=== PATIENT | male | born 1960 | race Caucasian/White ===

== ENCOUNTER 2021-05-25 06:49 | Outpatient (CLI) | payer OTHER, SELFPAY ==
[2021-05-25 10:28] LABS: Alanine Aminotransferase 22 U/L (4-50); Albumin Level 3.9 g/dL (3.5-5.1); Alkaline Phosphatase 48 U/L (38-126); Anion Gap 9 mmol/L (8-16); Aspartate Amino Transferase 30 U/L (17-59); Bilirubin,Total 0.7 mg/dL (0.2-1.3); Blood Urea Nitrogen 21 mg/dL (9-20); Calcium 9.6 mg/dL (8.4-10.2); Carbon Dioxide 25 mmol/L (22-30); Chloride 103 mmol/L (98-107); Cholesterol 147 mg/dL (0-200); Estimated Glomerular Filt Rate > 60; Glucose 85 mg/dL (65-110); HDL Direct 46 mg/dL; Potassium 4.5 mmol/L (3.4-5.0); Sodium 137 mmol/L (137-145); Triglycerides 74 mg/dL (<150)
[2021-05-25 10:46] LABS: LDL Cholesterol Direct 69 mg/dL
[2021-05-27 20:14] LABS: Prostate Specific Antigen 3.9 ng/mL (< OR = 4.0)
== END 2021-05-25 06:50 | disposition home or self-care (01) ==
PROVIDERS: PCP Internal Medicine; Visit Provider Internal Medicine
DX: E78.5 Hyperlipidemia, unspecified (principal); E78.2 Mixed hyperlipidemia; Z79.899 Other long term (current) drug therapy; Z12.5 Encounter for screening for malignant neoplasm of prostate
CPT/HCPCS: 36415; 80053; 80061; 84153; G0103

== ENCOUNTER 2021-11-01 12:40 | Outpatient (CLI) | payer OTHER, SELFPAY ==
[2021-11-01 14:26] LABS: Alanine Aminotransferase 31 U/L (4-50); Albumin Level 4.1 g/dL (3.5-5.1); Alkaline Phosphatase 51 U/L (38-126); Anion Gap 8 mmol/L (8-16); Aspartate Amino Transferase 36 U/L (17-59); Bilirubin,Total 0.6 mg/dL (0.2-1.3); Blood Urea Nitrogen 24 mg/dL (9-20); Calcium 9.3 mg/dL (8.4-10.2); Carbon Dioxide 30 mmol/L (22-30); Chloride 101 mmol/L (98-107); Cholesterol 114 mg/dL (0-200); Estimated Glomerular Filt Rate > 60; Glucose 73 mg/dL (65-110); HDL Direct 50 mg/dL; Sodium 139 mmol/L (137-145); Triglycerides 162 mg/dL (<150)
[2021-11-01 14:37] LABS: LDL Cholesterol Direct 44 mg/dL
== END 2021-11-01 12:41 | disposition home or self-care (01) ==
LOC: ANHLAB 12:43
PROVIDERS: PCP Internal Medicine; Visit Provider Internal Medicine
DX: I63.9 Cerebral infarction, unspecified (principal); Z79.899 Other long term (current) drug therapy; E78.5 Hyperlipidemia, unspecified
CPT/HCPCS: 36415; 80053; 80061

== ENCOUNTER 2022-12-17 09:25 | Outpatient (CLI) | payer OTHER, SELFPAY ==
[2022-12-17 10:42] LABS: Hematocrit 41.6 % (42.0-52.0); Hemoglobin 13.6 g/dL (14.0-18.0); Mean Corpuscular HGB Conc 32.7 g/dl (32-36); Mean Corpuscular Hemoglobin 29.2 pg (26-34); Mean Corpuscular Volume 89.5 fl (80-100); Mean Platelet Volume 9.9 fl (7.4-10.4); Platelet Count Result 312 k/mm3 (150-375); Red Blood Count 4.65 M/mm3 (4.6-6.20); Red Cell Distribution Width 13.9 % (11.5-14.5); White Blood Count 5.2 K/mm3 (4.5-10.0)
[2022-12-17 10:55] LABS: Alanine Aminotransferase 27 U/L (6-50); Albumin Level 4.3 g/dL (3.5-5.1); Alkaline Phosphatase 53 U/L (38-126); Anion Gap 6 mmol/L (8-16); Aspartate Amino Transferase 36 U/L (17-59); Bilirubin,Total 0.8 mg/dL (0.2-1.3); Blood Urea Nitrogen 18 mg/dL (9-20); Carbon Dioxide 28 mmol/L (22-30); Chloride 102 mmol/L (98-107); Cholesterol 96 mg/dL (0-200); Estimated Glomerular Filt Rate > 60; Glucose 86 mg/dL (65-110); HDL Direct 45 mg/dL; Phosphorus 3.5 mg/dL (2.5-4.5); Potassium 4.6 mmol/L (3.4-5.0); Sodium 136 mmol/L (137-145); Triglycerides 65 mg/dL (<150)
[2022-12-17 11:05] LABS: Hemoglobin A1C 5.5 % (<5.7)
[2022-12-17 11:22] LABS: Prostate Specific Antigen 4.5 ng/mL (< OR = 4.0)
[2022-12-17 15:53] LABS: LDL Cholesterol Direct < 30 mg/dL
== END 2022-12-17 09:26 | disposition home or self-care (01) ==
PROVIDERS: PCP Internal Medicine; Visit Provider Internal Medicine
DX: Z00.00 Encounter for general adult medical examination without abnormal findings (principal); N18.2 Chronic kidney disease, stage 2 (mild); R97.20 Elevated prostate specific antigen [PSA]
CPT/HCPCS: 36415; 80053; 80061; 83036; 84100; 84153; 85027; G0103

== ENCOUNTER 2023-06-13 07:48 | Outpatient (CLI) | payer OTHER, SELFPAY ==
[2023-06-13 08:40] LABS: Alanine Aminotransferase 28 U/L (6-50); Albumin Level 3.9 g/dL (3.5-5.1); Alkaline Phosphatase 46 U/L (38-126); Anion Gap 4 mmol/L (8-16); Aspartate Amino Transferase 37 U/L (17-59); Bilirubin,Total 0.8 mg/dL (0.2-1.3); Blood Urea Nitrogen 20 mg/dL (9-20); Calcium 8.9 mg/dL (8.4-10.2); Carbon Dioxide 26 mmol/L (22-30); Chloride 103 mmol/L (98-107); Cholesterol 111 mg/dL (0-200); Estimated Glomerular Filt Rate > 60; Glucose 80 mg/dL (65-110); HDL Direct 56 mg/dL; Potassium 4.1 mmol/L (3.4-5.0); Sodium 133 mmol/L (137-145); Triglycerides 58 mg/dL (<150)
[2023-06-13 08:52] LABS: LDL Cholesterol Direct 42 mg/dL
== END 2023-06-13 07:49 | disposition home or self-care (01) ==
PROVIDERS: PCP Nurse Practitioner; Visit Provider Nurse Practitioner
DX: E78.5 Hyperlipidemia, unspecified (principal)
CPT/HCPCS: 36415; 80053; 80061

== ENCOUNTER 2023-06-26 07:24 | Outpatient (CLI) | payer OTHER, SELFPAY ==
[2023-06-26 08:55] LABS: Prostate Specific Antigen 4.7 ng/mL (< OR = 4.0)
== END 2023-06-26 07:25 | disposition home or self-care (01) ==
PROVIDERS: PCP Nurse Practitioner; Visit Provider Nurse Practitioner
DX: R97.20 Elevated prostate specific antigen [PSA] (principal)
CPT/HCPCS: 36415; 84153

== ENCOUNTER 2023-12-30 07:16 | Outpatient (CLI) | payer OTHER, SELFPAY ==
[2023-12-30 08:10] LABS: Alanine Aminotransferase 29 U/L (6-50); Albumin Level 3.9 g/dL (3.5-5.1); Alkaline Phosphatase 53 U/L (38-126); Anion Gap 5 mmol/L (8-16); Aspartate Amino Transferase 38 U/L (17-59); Bilirubin,Total 0.6 mg/dL (0.2-1.3); Blood Urea Nitrogen 23 mg/dL (9-20); Calcium 9.1 mg/dL (8.4-10.2); Carbon Dioxide 26 mmol/L (22-30); Chloride 105 mmol/L (98-107); Cholesterol 108 mg/dL (0-200); Estimated Glomerular Filt Rate > 60; Glucose 87 mg/dL (65-110); HDL Direct 47 mg/dL; Potassium 4.3 mmol/L (3.4-5.0); Sodium 136 mmol/L (137-145); Triglycerides 60 mg/dL (<150)
[2023-12-30 08:22] LABS: LDL Cholesterol Direct 52 mg/dL
[2023-12-30 08:41] LABS: Prostate Specific Antigen 6.3 ng/mL (< OR = 4.0)
== END 2023-12-30 07:17 | disposition home or self-care (01) ==
LOC: ANHLAB 07:17
PROVIDERS: PCP Nurse Practitioner; Visit Provider Nurse Practitioner
DX: Z12.5 Encounter for screening for malignant neoplasm of prostate (principal); E78.5 Hyperlipidemia, unspecified
CPT/HCPCS: 36415; 80053; 80061; 84153; G0103

== ENCOUNTER 2025-08-02 06:47 | Outpatient (CLI) | payer OTHER, SELFPAY ==
--- OUTSIDE RECORDS SUMMARY | 2025-08-02 06:50 | XMS_ITS | Clinical Summary ---
Author Organization [facility] Address [address] [place] [address] Care Team Providers Care Machine Cage Maker Name Role Phone Jaime Marin DO Primary Care Provider [phone] Patrick Gill MD Unavailable [phone] Tolu Phillips APRN Unavailable [phone] Gonzales Manzano MD Unavailable [phone] Allergies No known active allergies Medications loratadine 5 MG/5ML syrup Take 10 mg by mouth daily. Active buPROPion SR 150 MG 12 hr tablet Take 150 mg by mouth daily. Not quite sure what exact dosage is Active famotidine 20 MG tablet Take 1 tablet (20 mg total) by mouth 2 (two) times daily. 60 tablet 1 Active buPROPion XL 150 MG 24 hr tablet Take 150 mg by mouth every morning. 1 Active clotrimazole-be tamethasone cream Apply topically 2 (two) times daily. APPLY TO AFFECTED AREA 1 Active HYDROcodone-mary taminophen 10-325 MG tablet Take 1 tablet by mouth every 6 (six) hours as needed. 1 Active sildenafil 100 MG tablet TAKE 1/2 TABLET BY MOUTH 30 MIN 4 HOURS BEFORE SEXUAL ACTIVITY. 1 Active valACYclovir 1 g tablet Take 1,000 mg by mouth daily. 1 Active atorvastatin 40 MG tablet 1 Active Active Problems Problem Noted Date Diagnosed Date PFO (patent foramen ovale) ([facility]) 08/28/2021 Left arm weakness 07/12/2021 Acute ischemic stroke ([facility]) 07/12/20 21 Immunizations Immunization Administration Dates Next Due Fluzone 6 Months+ Quad (0.5 mL Prefilled Syringe ) 07/12/2021 Social History Tobacco Use Types Packs/Day Years Used Date Smoking Tobacco: Former Smokeless Tobacco: Never Comments:ended 6-7 years ago Alcohol Use Standard Drinks/Week Comments Never 0 (1 standard drink = 0.6 oz pur e alcohol) PHQ-2 Answer Date Recorded PHQ-2 Score - If the patient scores above 3, please move on to questions 3-9 0 08/27/2021 Sex and Gender Information Value Date Recorded Sex Assigned at Not on file Legal Sex Male 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 Gender Identity Not on file Sexual Orientation Not on file Last Filed Vital Signs Vital Sign Reading Time Taken Comments Blood Pressure 119/84 09/02/2021 10:38 AM SCAFFOLD WORKER Pulse 67 09/02/2021 10:38 AM SCAFFOLD WORKER Temperature 36.6 C (97.8 F) 07/13/2021 8:02 AM CDT Respiratory Rate 17 09/02/2021 10:38 AM SCAFFOLD WORKER Oxygen Saturation 98% 09/02/2021 10:38 AM SCAFFOLD WORKER Inhaled Oxygen Concentration - - Weight 83.5 kg (184 lb) 09/02/2021 10:38 AM SCAFFOLD WORKER Height 170.2 cm (5' 7) 09/02/2021 10:38 AM SCAFFOLD WORKER Body Mass Index 28.82 09/02/2021 10:38 AM SCAFFOLD WORKER Plan of Treatment Health Maintenance Due Date Last Done Comments Colorectal Cancer Screening Colonoscopy (10 Years) 1960 Hepatitis C 1978 DTaP, Tdap and Td Vaccines ( 1 - Tdap) 1979 Pneumococcal Vaccine: 50+ Years (1 of 1 - PCV) 2010 Zoster Vaccines (1 of 2) 2010 COVID-19 Vaccine (3 - 2024-2 6 season) 2025 01/13/2021, 12/25/2020 Influenza Adult (#1) 2025 07/12/2021 RSV Immunization or 60+ Years (1 - 1-dose 75+ series) 2035 Meningococcal B Vaccine Aged Out No l onger eligible based on patient's age to complete this topic Meningococcal Vaccine Aged Out No sabrina yanira eligible based on patient's age to complete this topic RSV Immunizations Under 20 Months Aged Out No longer eligible b ased on patient's age to complete this topic Insurance AETNA [facility] Advance Directives * Full Code (Latest Code Status on File) Date Activated Date Inactivated Comments 07/12/2021 12:40 AM 07/13/2021 5:21 PM Care Teams Machine Cage Maker Relationship Specialty Start Date End Date Jaime Marin DO [address] [place] [id number] PCP - General INTERNAL MEDICINE 07/15/21 Patrick Gill MD [address] [address] Consulting Physician INTERVENTIONAL CARDIOLOGY 08/27/21 Tolu Phillips APRN [address] [place] [address] Nurse Practitioner NURSE PRACTITIONER 08/27/21 Gonzales Manzano MD [address] [address] Consulting Physician Vascular Neurology 08/27/21
--- OUTSIDE RECORDS SUMMARY | 2025-08-02 06:50 | XMS_ITS | Encounter Summary ---
Author Organization [facility] Address [address] [place] [address] Care Team Providers Care Sound Cutter Name Role Phone Nuris Jimenez NP Primary Care Provider + [phone] Jaime Marin DO Primary Care Provider + [phone] Patrick Gill MD Unavailable + [phone] Tolu Phillips APRN Unavailable [phone] Gonzales Manzano MD Unavailable [phone] Encounter Details Date Type Department Care Team (Late st Contact Info) Description 01/09/2018 Abstract [facility] CONVERSION [address] [place] [address] , Generic Conversion, Social History Tobacco Use Types Packs/Day Years Used Date Smoking Tobacco: Never Assessed Sex and Gender Information Value Date Recorded Sex Assigned at Not on file 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 Gender Identity Not on file Sexual Orientation Not on file documented as of this encounter Plan of Treatment Not on file documented as of this encounter Visit Diagnoses Not on filedocumented in this encounter Additional Health Concerns Infection Onset Date Last Indicated Resolved Time COVID-19 Rule Out 07/12/2021 07/12/2021 07/12/2021 2:37 PM CDT documented as of this encounter Care Teams Sound Cutter Relationship Specialty Start Date End Date Nuris Jimenez NP PCP - General FAMILY PRACTICE 07/11/21 07/14/21 Jaime Marin DO [address] [facility] [place] [address] PCP - General INTERNAL MEDICINE 07/15/21 Patrick Gill MD [address] [facility] [place] [address] Consulting Physician INTERVENTIONAL CARDIOLOGY 08/27/21 Tolu Phillips APRN [address] [facility] [place] [address] Nurse Practitioner NURSE PRACTITIONER 08/27/21 Gonzales Manzano MD [address] [facility] [place] [address] Consulting Physician Vascular Neurology 08/27/21 documented as of this encounter
--- OUTSIDE RECORDS SUMMARY | 2025-08-02 06:50 | XMS_ITS | Clinical Summary ---
Author Organization [facility] Address [address] [place] [address] Care Team Providers Care Compounding And Finishing Supervisor Name Role Phone Unavailable Primary Care Provider Unavailabl e Immunizations Immunization Administration Dates Next Due Covid-19, Mrna, Lnp-s, Pf, 30 Mcg/0.3 Ml Dose (P garyzer) 07/20/2021 Social History Tobacco Use Types Packs/Day Years Used Date Smoking Tobacco: Never Assessed Sex and Gender Information Value Date Recorded Sex Assigned at Not on file Legal Sex Male 11:34 PM CDT Gender Identity Not on file Sexual Orientation Not on file Plan of Treatment Health Maintenance Due Date Last Done Comments Hepatitis C Virus (HCV) Screening 1960 TdaP Immunization 1960 Cologuard 2005 Colonoscopy 2005 Colorectal Cancer Screening 2005 Immunochemical Fecal Occult Blood 2005 Pneumococcal Immunization (50+ years) (1 of 1 - PCV) 2010 Zoster Immunization (1 of 2) 2010 Influenza Immunization (#1) 06/26/202509/25, 08/03/2019, 07/28/2018, Additional history exists SARS-COV-2 Immunization (2024- season) 2025 07/20/2021, 01/13/2021, 12/25/2020 Respiratory Syncytial Virus (RSV) Immunization (Adult) (1 - 1-dose 75+ series) 2035 Hepatitis B Immunization Aged Out No longer eligible based on patient's age to complete this topic Human Papillomavirus (HPV) Immunization Aged Out No longer eligible based on patient's age to complete this topic Meningococcal Immunization (ACWY) Aged Out No longer eligible based on patient's age to complete this topic Rotavirus Immunization Aged Out No lo nger eligible based on patient's age to complete this topic
--- OUTSIDE RECORDS SUMMARY | 2025-08-02 06:50 | XMS_ITS | Encounter Summary ---
Author Organization [facility] Address [address] [place] [address] Care Team Providers Care Crusher Loader Operator Name Role Phone Jaime Marin DO Primary Care Provider [phone] Patrick Gill MD Unavailable [phone] Tolu Phillips APRN Unavailable + [phone] Gonzales Manzano MD Unavailable [phone] Encounter Details Date Type Department Care Team (Late st Contact Info) Description 07/15/2021 Hospital Follow-up Call [facility] [address] [place] [address] Yusra Alvarez RN Social History Tobacco Use Types Packs/Day Years Used Date Smoking Tobacco: Former Smokeless Tobacco: Never Comments:ended 6-7 years ago Alcohol Use Standard Drinks/Week Comments Never 0 (1 standard drink = 0.6 oz pur e alcohol) Sex and Gender Information Value Date Recorded Sex Assigned at Not on file 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 No / Unsure 07/11/2021 5:35 PM CDT documented as of this encounter Functional Status * RETIRED Are you deaf or do you have serious difficulty hearing Answer Date of Assessment Author Status No 07/12/2021 1:00 AM CDT Activ e * RETIRED Are you blind or do you have serious difficulty seeing, even when wearing glasses? Answer Date of Assessment Author Status No 07/12/2021 1:00 AM CDT Activ e * Do you have serious difficulty walking or climbing stairs? Answer Date of Assessment Author Status No 07/12/2021 1:00 AM Christina Calix, RN Active * Do you have difficulty dressing or bathing? Answer Date of Assessment Author Status No 07/12/2021 1:00 AM Christina Calix, FLAQUITO Active * Because of a physical, mental, or emotional condition, do you have difficulty doing errands alone such as visiting a doctor's office or shopping? Answer Date of Assessment Author Status No 07/12/2021 1:00 AM Christina Calix RN Active documented as of this encounter Mental Status * Because of a physical, mental, or emotional condition, do you have serious difficulty concentrating, remembering, or making decisions? Answer Entry Date Author Status No 07/12/2021 1:00 AM Christina Calix RN Active documented in this encounter Plan of Treatment Not on file documented as of this encounter Visit Diagnoses Not on filedocumented in this encounter Care Teams Crusher Loader Operator Relationship Specialty Start Date End Date Jaime Marin DO [address] [place] [address] PCP - General INTERNAL MEDICINE 07/15/21 Patrick Gill MD [address] [facility] [place] [address] Consulting Physician INTERVENTIONAL CARDIOLOGY 08/27/21 Tolu Phillips APRN [address] [place] [address] Nurse Practitioner NURSE PRACTITIONER 08/27/21 Gonzales Manzano MD [address] [place] [address] Consulting Physician Vascular Neurology 08/27/21 documented as of this encounter
--- OUTSIDE RECORDS SUMMARY | 2025-08-02 06:50 | XMS_ITS | Encounter Summary ---
Author Organization [facility] Address [address] [place] [address] Care Team Providers Care Property Claim Rep Name Role Phone Jaime Marin DO Primary Care Provider [phone] Patrick Gill MD Unavailable [phone] Tolu Phillips APRN Unavailable + [phone] Gonzales Maznano MD Unavailable [phone] Encounter Details Date Type Department Care Team (Late st Contact Info) Description 11/07/2021 90 Day Stroke Follow-up Call [facility] [address] [place] [address] Nyla Chow, RN Social History Tobacco Use Types Packs/Day [...] on file Legal Sex Male 10:57 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 Answer Date of Assessment Author Status No 07/12/2021 1:00 AM REJIT Christina Sanchez RN Active * Because of a physical, mental, [...] filedocumented in this encounter Additional Health Concerns Assessment Noted Time PHQ-9 Depression Total Score: 0 08/27/20 3:54 PM CDT documented as of this encounter Care Teams Property Claim Rep Relationship Specialty Start Date End Date Jaime Marin DO [address] [employer] [facility] [place] [address] PCP - General INTERNAL MEDICINE 07/15/21 Patrick Gill MD [address] [facility] [place] [address] Consulting Physician INTERVENTIONAL CARDIOLOGY 08/27/21 Tolu Phillips APRN [address] [facility] [place] [address] Nurse Practitioner NURSE PRACTITIONER 08/27/21 Gonzales Manzano MD [address] [employer] [facility] [place] [address] Consulting Physician Vascular Neurology 08/27/21 documented as of this encounter
[2025-08-02 08:04] LABS: Hematocrit 41.0 % (42.0-52.0); Hemoglobin 13.0 g/dL (14.0-18.0); Mean Corpuscular HGB Conc 31.7 g/dl (32-36); Mean Corpuscular Hemoglobin 26.9 pg (26-34); Mean Corpuscular Volume 84.7 fl (80-100); Platelet Count Result 197 k/mm3 (150-375); Red Blood Count 4.84 M/mm3 (4.6-6.20); White Blood Count 6.0 K/mm3 (4.5-10.0)
[2025-08-02 08:15] LABS: Alanine Aminotransferase 27 U/L (6-50); Albumin Level 4.1 g/dL (3.5-5.1); Alkaline Phosphatase 61 U/L (38-126); Anion Gap 7 mmol/L (4-12); Aspartate Amino Transferase 37 U/L (17-59); Bilirubin,Total 0.8 mg/dL (0.2-1.3); Blood Urea Nitrogen 18 mg/dL (9-20); Calcium 9.4 mg/dL (8.4-10.2); Carbon Dioxide 25 mmol/L (22-30); Chloride 103 mmol/L (98-107); Cholesterol 118 mg/dL (0-200); Estimated Glomerular Filt Rate 53; Glucose 85 mg/dL (65-110); HDL Direct 52 mg/dL; Potassium 4.1 mmol/L (3.4-5.0); Sodium 135 mmol/L (137-145); Total Protein 6.8 g/dL (6.3-8.2); Triglycerides 85 mg/dL (<150)
[2025-08-02 08:51] LABS: Prostate Specific Antigen 5.8 ng/mL (< OR = 4.0)
== END 2025-08-02 06:48 | disposition home or self-care (01) ==
LOC: ANHLAB 06:48
PROVIDERS: PCP Nurse Practitioner; Visit Provider Nurse Practitioner
DX: Z12.5 Encounter for screening for malignant neoplasm of prostate (principal); K21.9 Gastro-esophageal reflux disease without esophagitis; E78.5 Hyperlipidemia, unspecified
CPT/HCPCS: 36415; 80053; 80061; 84153; 85027; G0103

== ENCOUNTER 2025-09-06 01:50 | Day surgery (SDC) | payer OTHER, SELFPAY ==
[2025-08-29 10:35] VITALS: BMI 30.7
--- OUTSIDE RECORDS SUMMARY | 2025-09-06 01:53 | XMS_ITS | Clinical Summary ---
Author Organization [facility] Address [address] [place] [address] Care Team Providers Care All Around Patternmaker Name Role Phone Devante Mendez NP Primary Care Provider [phone] Allergies No known active allergies Medications sildenafiL (VIAGRA) 100 mg tablet TAKE 1 TABLET BY MOUTH ONCE DAILY NEEDED FOR SEXUAL ACTIVITY 30 MINUTES TO 4 HOURS BEFORE ACTIVITY. Active HYDROcodone-mary taminophen (NORCO) 5-325 mg per tablet Take by mouth every 6 (six) hours as needed for pain 12/25/2023 Active buPROPion XL (WELLBUTRIN XL) 150 mg 24 hr tablet Take 1 tablet (150 mg total) by mouth every morning Active atorvastatin (LIPITOR) 40 mg tablet Take 1 tablet (40 mg total) by mouth daily Active Active Problems No known active problems Social History Tobacco Use Types Packs/Day Years Used Date Smoking Tobacco: Former Cigarettes Tobacco Cessation:Counseling Given: Not Answered Personal Safety Answer Date Recorded Getting School Help Needed Not on file 01/05 Sex and Gender Information Value Date Recorded Sex Assigned at Not on file Legal Sex Male 2:44 AM THERAPY AIDE Gender Identity Not on file Sexual Orientation Not on file Plan of Treatment Health Maintenance Due Date Last Done Comments Colon Cancer Screening-Colonoscopy 1960 Depression Screening 1960 Fall Risk Assessment 1960 Hepatitis C Screening 1960 DTaP/Tdap/Td Vaccine (1 - Tdap) 1971 Hepatitis B Screening 1978 Pneumococcal vaccine 65+ (1 of 1 - PCV) 2010 Abdominal Aortic Aneurysm (A AA) Screen 2025 Well Visit 65+ 2025 Covid-19 Vaccine (2024-2 6 season) 2025 07/18/2023, 08/22/2022, 02/06/2022, Additional history exists Influenza Vaccine (#1) 2025 , 08/21/2022, 07/12/2021, Additional history exists Prostate Cancer Screening-PSA 02/02/2026 02/03/2024 Zoster Vaccine Completed 01/01/2024, 07/18/2023 Procedures Procedure Name Priority Date/Time Associated Diagnosis Comments PSA SCREEN Routine 02/03/2024 3:27 PM CDT Elevated PSA from Last 3 Months or Most Recently Relevant to Health Maintenance Results * PSA screen (02/03/2024 3:27 PM CDT) PSA-Total 5.28 <=5.40 ng/mL Comment: Interpretive Data AGE SEX REFERENCE INTERVAL 0 minutes-150 years Female None 0 minutes-49 years Male None 50-59 years Male 0-3.90 60-69 years Male 0-5.40 70-79 years Male 0-6.20 80-150 years Male 0-6.20 The Ana PSA Total assay procedure was used. Results from different manufacturers or methods may not be comparable. Serial testing should be performed using the same method. Current interpretive data last revised 22. Blood 02/03/2024 3:27 PM CDT 02/03/2024 3:53 PM CDT us Bradford Hernandez MD LAB BLOOD ORDERABLES Kym talamantes Result [facility] Department [place] [address] from Last 3 Months or Most Recently Relevant to Health Maintenance Insurance A[employer]NA COVENTRY HMO/POS AETNA COVENTRY HMO/POS Care Teams All Around Patternmaker Relationship Specialty Start Date End Date Devante Mendez NP [address] [place] [address] PCP - General Nurse Practitioner 01/06/24
--- OUTSIDE RECORDS SUMMARY | 2025-09-06 01:53 | XMS_ITS | Clinical Summary ---
Author Organization [facility] Address [address] [place] [phone] Care Team Providers Care Felt Dyeing Machine Tender Name Role Phone Unavailable Primary Care Provider [...]
--- OUTSIDE RECORDS SUMMARY | 2025-09-06 01:53 | XMS_ITS | Encounter Summary ---
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 Gender Identity Not on file Sexual Orientation [...] documented as of this encounter Care Teams Railroad Emergency Services Manager Relationship Specialty Start Date End Date Jaime Mairn DO [address] [employer] [facility] [address] PCP - General INTERNAL MEDICINE 07/15/21 Patrick Gill MD [address] [facility] [address] Consulting Physician INTERVENTIONAL CARDIOLOGY 08/27/21 Tolu Phillips APRN [address] [facility] [address] Nurse Practitioner NURSE PRACTITIONER 08/27/21 Gonzales Manzano MD [address] [employer] [facility] [place] [address] Consulting Physician Vascular Neurology 08/27/21 documented as of this encounter
--- OUTSIDE RECORDS SUMMARY | 2025-09-06 01:53 | XMS_ITS | Encounter Summary ---
Author Organization [facility] Address [address] [place] [address] Care Team Providers Care Neurosurgery Physician Name Role Phone Jaime Marin DO Primary Care Provider [phone] Patrick Gill MD Unavailable [phone] Tolu Phillips APRN Unavailable + [phone] Gonzales Manzano MD Unavailable [phone] Encounter Details Date Type Department Care Team (Late st Contact Info) Description 07/15/2021 Hospital Follow-up Call [facility] [address] [place] [address] Yusra Alvarez RN Social History Tobacco Use Types Packs/Day Years Used Date Smoking Tobacco: Former Smokeless Tobacco: Never Comments:ended 6-7 years ago Alcohol Use Standard Drinks/Week Comments Never 0 (1 standard drink = 0.6 oz pur e alcohol) Sex and Gender Information Value Date Recorded Sex Assigned at Not on file Legal Sex Male 10:57 PM RESEARCH BIOLOGIST Gender Identity Not on file Sexual Orientation [...] on filedocumented in this encounter Care Teams Neurosurgery Physician Relationship Specialty Start Date End Date Jaime Marin DO [address] [place] [address] PCP - General INTERNAL MEDICINE 07/15/21 Patrick Gill MD [address] [place] [address] Consulting Physician INTERVENTIONAL CARDIOLOGY 08/27/21 Tolu Phillips APRN [address] [employer] [facility] [place] [address] Nurse Practitioner NURSE PRACTITIONER 08/27/21 Gonzales Manzano MD [address] [employer] [facility] [place] [address] Consulting Physician Vascular Neurology 08/27/21 documented as of this encounter
--- OUTSIDE RECORDS SUMMARY | 2025-09-06 01:53 | XMS_ITS | Encounter Summary ---
Author Organization [facility] Address [address] [place] [address] Care Team Providers Care Sorting Grapple Operator Name Role Phone Nuris Jimenez NP Primary Care Provider + [phone] Jaime Marin DO Primary Care Provider + [phone] Ptarick Gill MD Unavailable + [phone] Tolu Phillips APRN Unavailable [phone] Gonzales Manzano MD Unavailable [phone] Encounter Details Date Type Department Care Team (Late st Contact Info) Description 01/09/2018 Abstract [facility] CONVERSION [address] [place] [address] , Generic Conversion, Social History Tobacco Use Types Packs/Day Years Used Date Smoking Tobacco: Never Assessed Sex and Gender Information Value Date Recorded Sex Assigned at Not on file Legal Sex Male 10:57 PM PRICE CHECKER Gender Identity Not on file Sexual Orientation Not on file documented as of this encounter Plan of Treatment Not on file documented as of this encounter Visit Diagnoses Not on filedocumented in this encounter Additional Health Concerns Infection Onset Date Last Indicated Resolved Time COVID-19 Rule Out 07/12/2021 07/12/2021 07/12/2021 2:37 PM CDT documented as of this encounter Care Teams Sorting Grapple Operator Relationship Specialty Start Date End Date Nuris Jimenez NP PCP - General FAMILY PRACTICE 07/11/21 07/14/21 Jaime Marin DO [address] [facility] [place] [address] PCP - General INTERNAL MEDICINE 07/15/21 Patrick Gill MD [address] [facility] [place] [address] Consulting Physician INTERVENTIONAL CARDIOLOGY 08/27/21 Tolu Phillips APRN [address] [facility] [place] [address] Nurse Practitioner NURSE PRACTITIONER 08/27/21 Gonzales Manzano MD [address] [facility] [place] [address] Consulting Physician Vascular Neurology 08/27/21 documented as of this encounter
--- OUTSIDE RECORDS SUMMARY | 2025-09-06 01:53 | XMS_ITS | Clinical Summary ---
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 CAR 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 Gender Identity Not on file Sexual Orientation Not on file Last Filed Vital Signs Vital Sign Reading Time Taken Comments Blood Pressure 119/84 09/02/2021 10:38 AM COURTESY CAR DRIVER Pulse 67 09/02/2021 10:38 AM COURTESY CAR DRIVER Temperature 36.6 C (97.8 F) 07/13/2021 8:02 AM CDT Respiratory Rate 17 09/02/2021 10:38 AM COURTESY CAR DRIVER Oxygen Saturation 98% 09/02/2021 10:38 AM COURTESY CAR DRIVER Inhaled Oxygen Concentration - - Weight 83.5 kg (184 lb) 09/02/2021 10:38 AM COURTESY CAR DRIVER Height 170.2 cm (5' 7) 09/02/2021 10:38 AM COURTESY CAR DRIVER Body Mass Index 28.82 09/02/2021 10:38 AM COURTESY CAR DRIVER Plan of Treatment Health Maintenance Due Date [...] Years (1 - 1-dose 75+ series) 2035 Hepatitis A Vaccines Aged Out No long er eligible based on patient's age to complete this topic Meningococcal B Vaccine Aged Out No l onger eligible based on patient's age to complete this topic Meningococcal Vaccine Aged Out No sabrina yanira eligible based on patient's age to complete this topic RSV Immunizations Under 20 Months Aged Out No longer eligible b ased on patient's age to complete this topic Insurance AETNA [facility] Advance Directives * Full Code (Latest Code Status on File) Date Activated Date Inactivated Comments 07/12/2021 12:40 AM 07/13/2021 5:21 PM Care Teams Combine Inspector Relationship Specialty Start Date End Date Jaime Marin DO [address] [address] PCP - General INTERNAL MEDICINE 07/15/21 Patrick Gill MD [address] [address] Consulting Physician INTERVENTIONAL CARDIOLOGY 08/27/21 Tolu Phillips APRN [address] [address] Nurse Practitioner NURSE PRACTITIONER 08/27/21 Gonzales Manzano MD [address] [address] Consulting Physician Vascular Neurology 08/27/21
[2025-09-06] MEDS: LACTATED RINGERS 1,000 ML 150 ML IV CONT (12:11)
--- NOTE | 2025-09-06 13:01 | SUR.PREOP ---
Dr. Fonseca 1 hour behind schedule. Pt updated on delay.
--- NOTE | 2025-09-06 14:03 | PM.IMHP ---
H&P: HPI History of Present Illness Date/Time: 09/06/25 14:03 Chief Complaint: Screening colonoscopy Narrative: This is the patient's first colonoscopy. There are no GI symptoms and there is no family history of colorectal cancer. Review of Systems Review of Systems: All systems reviewed & are unremarkable except as noted in HPI and below PMFSH Past Medical History Medical History (Updated 08/04/25 @ 13:43 by Devante Mendez APRN) BMI 30.0-30.9,adult Sciatica associated with disorder of lumbar spine Lumbar degenerative disc disease CKD stage G2/A2, GFR 60-89 and albumin creatinine ratio 30-299 mg/g CVA (cerebral vascular accident) R MCA territory Chronic low back pain Elevated PSA Erectile dysfunction Gastroesophageal reflux disease Genital herpes in men Mixed hyperlipidemia Family History Family History (Updated 08/04/25 @ 13:26 by Janine Forde Gray) Father Mother Sibling No problems noted. Social History Social History (Updated 08/04/25 @ 13:28 by Janine Forde Gray) Smoking packs per day: 0.5 Smoking cigarettes per day: 10.0 Years smoked: 20 Smoking pack-years: 10.00 Smoking status: Former smoker Tobacco type: cigarettes Second hand tobacco smoke exposure: No Smoking end date: 04/18/11 Alcohol intake: former Substance use: never Substance use type: does not use Do You Feel Safe in your Home?: Yes Lack of Transportation: No Lack of Food: Never True Current Housing: I Have Housing Concerned About Future Housing: No Difficulty Paying Gas/Electric Bills: No Difficulty Paying for Meds: No Currently Unemployed: No Education: Master's Degree or Higher Difficulty w/ Childcare or Family Care: No Living arrangements: with family Occupation/Education: occupation 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 Gender identity (if verbalized by the patient): Male Spiritual care concerns: No Meds Home Medications and Allergies Home Medications ?Medication ?Instructions ?Recorded ?Confirmed ?Type betamethasone dipropionate 0.05 % 1 applic topical DAILY PRN itching 05/31/21 08/29/25 History topical cream clotrimazole-betamethasone 1 1 applic topical BID PRN itching 07/26/21 08/29/25 History %-0.05 % topical cream aspirin 81 mg capsule 81 mg PO DAILY 11/29/21 08/29/25 History loratadine 10 mg capsule 10 mg PO DAILY 11/29/21 08/29/25 History hydrocodone 5 mg-acetaminophen 325 1 tablet PO Q8H PRN pain #60 tabs 02/06/23 08/29/25 Rx mg tablet sildenafil 100 mg tablet (Viagra) 100 mg PO DAILY PRN sexual 09/12/24 08/29/25 Rx activity #30 tabs valacyclovir 1 gram tablet See Rx Instructions .Route 09/12/24 08/29/25 Rx .COMPLEX #90 tabs atorvastatin 40 mg tablet (Lipitor) 40 mg PO DAILY #90 tabs 05/25/25 08/29/25 Rx bupropion HCl 150 mg 24 hr tablet, See Rx Instructions .Route 08/21/25 08/29/25 Rx extended release .COMPLEX #90 tabs Allergies Allergy/AdvReac Type Severity Reaction Status Date / Time No Known Allergies Allergy Verified 09/06/25 11:57 Exam Const: General: cooperative and healthy appearing Resp: Effort & Inspection: normal respiratory effort and able to speak in complete sentences Auscultation: clear to auscultation bilaterally Cardio: Rate: regular rate Rhythm: regular rhythm GI: Inspection: normal to inspection GI Palp: No No hepatosplenomegaly present Auscultation: normal bowel sounds Rectal Exam: deferred Skin: General skin exam: normal color Psych: Appearance: grossly normal Mental Status: mental status grossly normal Assessment and Plan Assessment and plan (1) Screening for colon cancer: Code(s): Z12.11 - Encounter for screening for malignant neoplasm of colon Status: Acute Assessment and Plan: The patient is deemed a good candidate for the procedure. Consent signed. Will proceed.
[2025-09-06 14:38] VITALS: BP 115/78; PULSE 57; RESP 26; O2SAT 98
[2025-09-06 14:48] VITALS: BP 115/79; PULSE 53; RESP 23; O2SAT 100
[2025-09-06 14:58] VITALS: BP 118/83; PULSE 52; RESP 27; O2SAT 100
--- NOTE | 2025-10-02 13:22 | WPDANESEPPF ---
Anes - Initial Pre Proc Eval Procedure: Operation Date: 09/06/25 13:00 Proposed Procedures p Screening Colonoscopy - Art Fonseca MD Date/Time: 10/02/25 13:22 late entry Surgeon: Art Fonseca MD Pre Op Diagnosis: Encounter for screening for malignant neoplasm of Patient Data Age: 65 Gender: M Height: 1.68 m Weight: 86.9 kg Last Vital Signs Pulse 52 L 09/06/25 14:58 Resp 27 H 09/06/25 14:58 BP 118/83 09/06/25 14:58 Pulse Ox 100 09/06/25 14:58 O2 Del Method Room Air 09/06/25 14:58 Allergies Allergy/AdvReac Type Severity Reaction Status Date / Time No Known Allergies Allergy Verified 09/06/25 11:57 Home Medications ?Medication ?Instructions ?Recorded ?Confirmed ?Type betamethasone dipropionate 0.05 % 1 applic topical DAILY PRN itching 05/31/21 08/29/25 History topical cream clotrimazole-betamethasone 1 1 applic topical BID PRN itching 07/26/21 08/29/25 History %-0.05 % topical cream aspirin 81 mg capsule 81 mg PO DAILY 11/29/21 08/29/25 History loratadine 10 mg capsule 10 mg PO DAILY 11/29/21 08/29/25 History hydrocodone 5 mg-acetaminophen 325 1 tablet PO Q8H PRN pain #60 tabs 02/06/23 08/29/25 Rx mg tablet sildenafil 100 mg tablet (Viagra) 100 mg PO DAILY PRN sexual 09/12/24 08/29/25 Rx activity #30 tabs valacyclovir 1 gram tablet See Rx Instructions .Route 09/12/24 08/29/25 Rx .COMPLEX #90 tabs atorvastatin 40 mg tablet (Lipitor) 40 mg PO DAILY #90 tabs 05/25/25 08/29/25 Rx bupropion HCl 150 mg 24 hr tablet, See Rx Instructions .Route 08/21/25 08/29/25 Rx extended release .COMPLEX #90 tabs Patient hx anesthesia problems: none Family hx anesthesia problems: none Results Review: All pre-operative results and documents have been reviewed as part of the pre-operative evaluation. [facility] Past Medical History Medical History BMI 30.0-30.9,adult Sciatica associated with disorder of lumbar spine Lumbar degenerative disc disease CKD stage G2/A2, GFR 60-89 and albumin creatinine ratio 30-299 mg/g CVA (cerebral vascular accident) R MCA territory Chronic low back pain Elevated PSA Erectile dysfunction Gastroesophageal reflux disease Genital herpes in men Mixed hyperlipidemia Family History Family History Father Mother Sibling No problems noted. Social History Social History (Updated 08/04/25 @ 13:28 by Janine Forde [facility]) Smoking packs per day: 0.5 Smoking cigarettes per day: 10.0 Years smoked: 20 Smoking pack-years: 10.00 Smoking status: Former smoker Tobacco type: cigarettes Second hand tobacco smoke exposure: No Smoking end date: 04/18/11 Alcohol intake: former Substance use: never Substance use type: does not use Lack of Transportation: No Lack of Food: Never True Current Housing: I Have Housing Concerned About Future Housing: No Difficulty Paying Gas/Electric Bills: No Difficulty Paying for Meds: No Currently Unemployed: No Education: Master's Degree or Higher Difficulty w/ Childcare or Family Care: No Living arrangements: with family Occupation/Education: occupation 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 Informed Consent: The patient's anesthetic plan and its attendant risks and benefits were discussed with the patient/family/POA on day of procedure. Questions were solicited and answers provided to the satisfaction of the patient/family/POA.
== END 2025-09-06 14:58 | disposition home or self-care (01) ==
PROVIDERS: PCP Nurse Practitioner; Referring Provider Nurse Practitioner; Visit Provider Internal Medicine Gastroenterology
PROC: 0DJD8ZZ Inspection of Lower Intestinal Tract, Via Natural or Artificial Opening Endoscopic (ICD-10-PCS; CPT 45378; principal; 2025-09-06 13:00)
DX: Z12.11 Encounter for screening for malignant neoplasm of colon (principal); K64.8 Other hemorrhoids; K57.30 Diverticulosis of large intestine without perforation or abscess without bleeding; K21.9 Gastro-esophageal reflux disease without esophagitis; E78.2 Mixed hyperlipidemia; N18.2 Chronic kidney disease, stage 2 (mild); N52.9 Male erectile dysfunction, unspecified; M51.369 Other intervertebral disc degeneration, lumbar region without mention of lumbar back pain or lower extremity pain; G89.29 Other chronic pain; M54.50 Low back pain, unspecified; Z79.891 Long term (current) use of opiate analgesic; Z87.891 Personal history of nicotine dependence; Z86.79 Personal history of other diseases of the circulatory system
CPT/HCPCS: 45378; J2704; J7120